=== PATIENT | female | born 1995 ===

== ENCOUNTER 2017-04-17 19:15 | Emergency (ER) | payer SELFPAY ==
[2017-04-17 20:27] VITALS: BP 143/84; PULSE 105; RESP 16; TEMP 98; O2SAT 100
--- NOTE | 2017-04-17 20:39 | ED PDOC ---
HPI: CCC, URI, Sore Throat Time Seen by Provider: 04/17/17 20:28 Chief Complaint (Nursing): Cough, Cold, Congestion Chief Complaint (Provider): Cough History Per: Patient History/Exam Limitations: no limitations Have you had recent travel within the past 21 days to any of the following countries: [place], [place], [place] or [place]?: No Onset/Duration Of Symptoms: Days (x 2 weeks ) Current Symptoms Are (Timing): Still Present Additional Complaint(s): 22 year old female presents to the ED complaining of a scratchy throat and cough for 2 weeks. She reports wheezing and chest congestion started 2 days ago. She has taken Sudafed before with no relief from symptoms. She feels feverish but has not measured temp and she does have body aches. No recent travel or known sick contacts. PMD: none Past Medical History Reviewed: Historical Data, Nursing Documentation, Vital Signs Vital Signs: Last Vital Signs Temp 98.0 F 04/17/17 20:25 Pulse 105 H 04/17/17 20:25 Resp 16 04/17/17 20:25 BP 143/84 04/17/17 20:25 Pulse Ox 100 04/17/17 21:48 - Medical History PMH: No Chronic Diseases - Surgical History Surgical History: - Family History Family History: States: No Known Family Hx - Living Arrangements Living Arrangements: With Family (0) - Social History Current smoker - smoking cessation education provided: No Alcohol: None Drugs: Denies - Home Medications Home Medications: Ambulatory Orders Medication Instructions Recorded Albuterol HFA [Ventolin HFA 90 1 puff IH ASDIR #1 unit 04/17/17 mcg/actuation (8 g)] Azithromycin [Zithromax] 250 mg PO DAILY #6 tab 04/17/17 predniSONE [Prednisone] 20 mg PO BID #10 tab 04/17/17 - Allergies Allergies/Adverse Reactions: Allergies Allergy/AdvReac Type Severity Reaction Status Date / Time No Known Allergies Allergy Verified 04/17/17 20:27 Review of Systems ROS Statement: Except As Marked, All Systems Reviewed And Found Negative Constitutional: Positive for: Fever ("feels feverish"). Negative for: Chills ENT: Positive for: Throat Pain (scratchy) Respiratory: Positive for: Cough, Wheezing, Other (Chest congestion) Neurological: Negative for: Headache, Dizziness Physical Exam - Reviewed Nursing Documentation Reviewed: Yes Vital Signs Reviewed: Yes - Physical Exam Appears: Positive for: Non-toxic, No Acute Distress Head Exam: Positive for: ATRAUMATIC, NORMAL INSPECTION, NORMOCEPHALIC Skin: Positive for: Normal Color Eye Exam: Positive for: Normal appearance ENT: Positive for: Normal ENT Inspection, TM Is/Are (normal). Negative for: Pharyngeal Erythema, Tonsillar Exudate, Tonsillar Swelling Respiratory: Positive for: Wheezing (bilateral inspiratory and expiratory wheezing diffusely). Negative for: Respiratory Distress Extremity: Negative for: Pedal Edema Neurologic/Psych: Positive for: Alert, Oriented - Laboratory Results Urine POC: Negative - ECG O2 Sat by Pulse Oximetry: 100 (RA) Pulse Ox Interpretation: Normal - Other Rad CXR X-Ray: Interpreted by Me, Viewed By Me X-Ray Interpretation: no acute finding Nebulizer Treatments/Peak Flow - Duonebs Number of Bronchodilator Doses given?: 1 (duoneb) - Pre/Post Peak Flow Pre Treatment Peak Flow: 250 Post treatment Peak Flow: 300 - Steroid Treatment Steroid: Oral (40 mg PO prednisone) - Clinical Response Clinical Response: Improved Medical Decision Making Medical Decision Making: Time: 20:45 Clinical Impression: 22 year old female with URI symptoms Initial Plan: --Urine --Chest X ray --Duoneb 3 ml INH --Nebulizer Treatment --Peak Flow Pre/ Post Patient aware of x-ray results. She feels better after DuoNeb treatment. Initial dose prednisone 40 mg given in ED. Prescriptions provided for Zithromax , prednisone and Ventolin inhaler. Patient referred to clinic for follow-up. Scribe Attestation: Documented by Kathy Cervantes, acting as a scribe for Twila De Los Santos PA-C Provider Scribe Attestation: All medical record entries made by the Scribe were at my direction and personally dictated by me. I have reviewed the chart and agree that the record accurately reflects my personal performance of the history, physical exam, medical decision making, and the department course for this patient. I have also personally directed, reviewed, and agree with the discharge instructions and disposition. Disposition - Clinical Impression Clinical Impression: Bronchitis - Patient ED Disposition Is Patient to be Admitted: No Counseled Patient/Family Regarding: Studies Performed, Diagnosis, Need For Followup, Rx Given - Disposition Referrals: [facility] [Outside] Disposition: Routine/Home Disposition Time: 21:45 Condition: STABLE Additional Instructions: Take prescription medications as directed. [id number] Tylenol or Motrin for body aches as needed. Rest and drink plenty of fluids. Follow-up with clinic in 2-3 days. Prescriptions: Albuterol HFA [Ventolin HFA 90 mcg/actuation (8 g)] 1 puff IH ASDIR #1 unit Azithromycin [Zithromax] 250 mg PO DAILY #6 tab predniSONE [Prednisone] 20 mg PO BID #10 tab Instructions: Acute Bronchitis (ED) Forms: [facility] ([place])
[2017-04-17] MEDS ORDERED: Albuterol-Ipratrop 3 mg / 0.5 (3 ml) UD INH STA (20:45)
--- NOTE | 2017-04-18 09:58 | RAD ---
HISTORY: cough COMPARISON: No prior. TECHNIQUE: Chest PA and lateral FINDINGS: LUNGS: No active pulmonary disease. PLEURA: No significant pleural effusion identified. No pneumothorax apparent. CARDIOVASCULAR: Normal. OSSEOUS STRUCTURES: No significant abnormalities. VISUALIZED UPPER ABDOMEN: Normal. OTHER FINDINGS: None. IMPRESSION: No active disease.
== END 2017-04-17 22:10 | disposition home or self-care (01) ==
LOC: H.ER 19:15
DX: J40 Bronchitis, not specified as acute or chronic (principal)